=== PATIENT | male | born 1965 | race Caucasian/White ===

== ENCOUNTER 2020-10-05 20:02 | Emergency (ER) | payer OTHER ==
[~2020-10-05] VITALS: Ht 182.9 cm; Wt 74.8 kg
[~2020-10-05 20:02] MED LIST: AMBIEN 5 MG TABL5 M1; AVAPRO 150 MG150 M1; LEXAPRO 10 MG T10 M1; LOVASTATIN 20 M20 MG; PERCOCET 5-3251 EACH PO; XANAX 0.5 MG0.5 MG PO; ZETIA10 MG PO; ZOFRAN ODT4 MG PO; ZOLOFT50 MG; melatonin
[2020-10-05 20:25] LABS: URINE BILIRUBIN NEGATIVE (Negative); URINE BLOOD TRACE (Negative); URINE CLARITY CLEAR; URINE COLOR YELLOW; URINE GLUCOSE-RANDOM NEGATIVE (Negative); URINE KETONES NEGATIVE (Negative); URINE LEUKOCYTES-REFLEX NEGATIVE (Negative); URINE NITRITE-REFLEX NEGATIVE (Negative); URINE PROTEIN NEGATIVE (Negative); URINE UROBILINOGEN 0.2 E.U./dl (0.2-1.0)
[2020-10-05 20:34] LABS: AMP/METHAMP Negative (Negative); BARBITURATES Negative (Negative); BENZODIAZEPINES Negative (Negative); COCAINE Negative (Negative); METHADONE Negative (Negative); OPIATES Negative (Negative); PCP Negative (Negative); THC Negative (Negative)
[2020-10-05] MEDS ORDERED: BUSPIRONE HCL15 MG PO (20:39)
[2020-10-05] MEDS ORDERED: EFFEXOR XR150 MG PO (20:40)
[2020-10-05 20:51] LABS: ABSOLUTE BASOPHILS 0.1 thou/uL (0.0-0.2); ABSOLUTE EOSINOPHILS 0.3 thou/uL (0.0-0.7); ABSOLUTE LYMPHOCYTES 1.9 thou/uL (0.8-5.3); ABSOLUTE MONOCYTES 0.5 thou/uL (0.0-1.2); ABSOLUTE NEUTROPHILS 4.7 thou/uL (1.6-8.1); BASOPHILS 0.8 %; EOSINOPHILS 4.4 %; HEMATOCRIT 46.3 % (42.0-52.0); HEMOGLOBIN 15.7 gm/dL (14.0-18.0); LYMPHOCYTES 25.6 %; MCHC 33.9 g/dL (28.0-37.0); MCV 97.5 fL (80.0-100.0); MPV 9.1 fl. (7.2-11.1); NUCLEATED RBCS 0 /100WBC; PLATELET COUNT* 207 thou/uL (150-400); POLYS 63.2 %; RBC 4.75 mil/uL (4.50-6.00); RDW-CV 13.1 % (10.5-14.5); WBC 7.4 thou/uL (4.0-11.0)
[2020-10-05 21:00] LABS: CALCIUM 8.9 mg/dL (8.5-10.1); CREATININE 0.9 mg/dL (0.6-1.3); POTASSIUM 3.7 mmol/L (3.5-5.1)
[2020-10-05 21:03] LABS: ALCOHOL 230 mg/dL (<10); SALICYLATE < 2.8 mg/dL (2.8-20.0)
[2020-10-05 21:04] LABS: ACETAMINOPHEN < 2 ug/mL (10-30)
[2020-10-05 21:05] LABS: ALBUMIN 4.2 g/dL (3.4-5.0); TOTAL BILIRUBIN 0.3 mg/dL (<0.1-1.0); TOTAL PROTEIN 7.9 g/dL (6.4-8.2)
[2020-10-06 13:45] VITALS: BP 155/89
[2020-10-09] MEDS ORDERED: EFFEXOR XR75 MG PO (12:52)
[2020-10-09] MEDS ORDERED: TRAZODONE HCL50 MG PO (12:52)
== END 2020-10-06 14:09 ==
LOC: M.ERS 20:02
PROVIDERS: Emergency Medicine
DX: R45.851 Suicidal ideations (principal); F10.920 Alcohol use, unspecified with intoxication, uncomplicated; I10 Essential (primary) hypertension; F32.9 Major depressive disorder, single episode, unspecified; E78.00 Pure hypercholesterolemia, unspecified; Z20.822 Contact with and (suspected) exposure to COVID-19; Z90.89 Acquired absence of other organs; Z79.899 Other long term (current) drug therapy